=== PATIENT | female | born 1975 | race Caucasian/White ===

== ENCOUNTER 2017-12-17 05:40 | Day surgery (SDC) | payer MEDICAID ==
[2017-12-16 10:06] LABS: BASOPHILS 1.1 % (0-2); EOSINOPHILS 3.5 % (0-7); HEMATOCRIT 41.1 % (36.0-48.0); HEMOGLOBIN 13.4 g/dL (12-16); IMMATURE GRANULOCYTES 0.3 % (0-5); LYMPHOCYTES 26.5 % (15-50); MCH 30.5 pg (26.0-34.0); MCHC 32.6 g/dL (31.0-37.0); MCV 93.6 fL (80.0-100.0); MONOCYTES 9.1 % (2-11); NEUTROPHILS 59.5 % (40-80); PLATELET COUNT 237 10x3/uL (130-400); RBC 4.39 10x6/uL (4.00-5.40); RDW 13.2 % (11.5-14.5); WBC 6.5 10x3/uL (4.8-10.8)
[2017-12-17] VITALS (11 sets, daily range): BP systolic 99–137; BP diastolic 64–82; Ht 167.6 cm; Wt 103.6 kg
[~2017-12-17] VITALS: Ht 167.6 cm; Wt 103.6 kg
--- NOTE | ~2017-12-17 | DS ---
PATIENT:FELICIANO VILLARREAL :79 MEDICAL RECORD: [id number] DISCHARGE SUMMARY ADMISSION DATE: 12/17/17 DISCHARGE DATE: 12/18/17 DATE OF ADMISSION: 12/17/2017 DATE OF DISCHARGE: 12/18/2017 ADMISSION DIAGNOSES: 1. Pelvic pain. 2. Dysfunctional uterine bleeding. PROCEDURE PERFORMED: Total laparoscopic hysterectomy. ATTENDING: Dr. Atkinson HISTORY OF PRESENT ILLNESS: See the H&P in the chart. SUMMARY OF HOSPITALIZATION: The patient was admitted to the hospital and underwent procedure without difficulty. Due to logistical issues and concerns for care overnight, the patient was maintained in the hospital. At the time of discharge, she is tolerating regular diet, voiding without difficulty, and has adequate pain control. DISCHARGE MEDICATIONS: Will include Percocet and ibuprofen. DISCHARGE INSTRUCTIONS: The patient has been asked to follow up in 2 weeks and has been given standard precautions. TRANSINT:[id number] Voice Confirmation ID: [id number] DOCUMENT ID: [id number] BRIDGETTE ATKINSON MD at 0721 CC: [id number] DICTATION DATE: 12/18/17727 CANNON PINION ADJUSTER: 12/18/17 0735 DIS IN 12/18/[address] [facility] [address] [place] [address]
--- NOTE | ~2017-12-17 | OP ---
PATIENT NAME: FELICIANO VILLARREAL MEDICAL RECORD: [id number] :79 LOCATION:[facility].1274 ADMISSION DATE:12/17/17 SURGEON: JUSTIN ATKINSON MD DATE OF OPERATION: 12/17/2017 PREOPERATIVE DIAGNOSES: 1. Dysmenorrhea. 2. Dysfunctional uterine bleeding. POSTOPERATIVE DIAGNOSES: 1. Dysmenorrhea. 2. Dysfunctional uterine bleeding. 3. Fibroid uterus. PROCEDURE: Total laparoscopic hysterectomy with bilateral salpingectomy. SURGEON: Justin Atkinson MD BANK ANALYST: Matt Navarro. ANESTHESIOLOGIST: Enmanuel Portillo MD ANESTHESIA: General. FINDINGS: Uterus enlarged with irregular contour. Tubes are unremarkable. Both ovaries appear unremarkable. No evidence of endometriosis. SPECIMEN REMOVED: Uterus with cervix and tubes. SPECIMEN DISPOSITION: Pathology. ESTIMATED BLOOD LOSS: Less than or equal to 200 cc. FLUIDS: 1900 cc lactated Ringer's. URINE OUTPUT: 300 cc clear urine. COMPLICATIONS: None. DRAINS: Kyle to gravity. INDICATIONS: The patient is a 42-year-old female with heavy periods and pain. Clinical suspicion of adenomyosis. The patient has tried conservative therapy without results. The patient is consented for a total laparoscopic hysterectomy and indicated procedure. DESCRIPTION OF PROCEDURE: After informed consent was assured, the patient was taken to the operating room where anesthetic is obtained. She was prepped and draped in usual sterile fashion after being put in Yellofin stirrups. Another speculum was introduced and uterine manipulator placed. Attention was now directed to the abdomen where a primary trocar was inserted. The patient was placed in Trendelenburg position. Accessory trocars were placed in the right and left lower quadrants. Left tube is grasped and elevated from the right and using a coagulation cutter. The tube was from its attachment to the adnexa. The dissection was carried over the uterine ovarian ligaments and round OPERATIVE REPORT [id number] FELICIANO VILLARREAL ligaments. The anterior leaf of the broad ligament is dissected free to the level of the bladder flap anteriorly. The broad ligament was opened posteriorly. The vessels on the left side skeletonized, compressed, and coagulated. Attention was now directed to the right. The right tube is now elevated and removed from its attachments to the adnexa. The dissection was carried down over the uterine ovarian ligaments and round ligaments. The broad ligament was opened and the bladder flap now fully developed. The posterior leaf of the broad ligament is dissected free of the vessels on the right side. These were skeletonized, compressed, coagulated, and now . The attention was now directed to the left side where the vessels were . The dissection began on the uterus from the vaginal cuff from the 6 o'clock position to the 3 o'clock position and then from the fixed to the 12. The remaining portion of the cervix, the uterus attached to the vagina was removed from the 12 o'clock to 3 o'clock positions. Uterus is now pulled through the vagina and passed off the field. The cuff is closed with the legs positioned in the vaginal closure of the cuff began by placing a modified Gilman stitch. The stitch was passed from the posterior cuff through the left uterosacral ligament across to the right uterosacral ligament, and out to the vagina. This is held to be used later in the procedure. A stitch was now used to close the cuff from the anterior to posterior fashion. A running stitch of Vicryl was used. After closure of the vaginal cuff, the modified Gilman stitches tied. Pneumoperitoneum is now reestablished and the pelvis irrigated. The irrigant was removed. The cuff was inspected and found to be hemostatic. The pneumoperitoneum is released as the trocars were removed. The skin was reapproximated with a subcuticular stitch and Dermabond applied. Sponge, lap, and needle counts correct times 2. The patient is awake and went to recovery area in stable condition. TRANSINT:[id number] Voice Confirmation ID: [id number] DOCUMENT ID: [id number] JUSTIN ATKINSON MD at 0721 CC: [id number] DICTATION DATE: 12/17/17 0947 BANQUET STEWARD: 12/17/17 1049 DIS IN 12/18/17 [facility] [address] [place] [id number]
[~2017-12-17 05:40] MED LIST: EFFEXOR XR150 MG PO; TRAZODONE HCL150 MG PO; ULTRAM50 MG PO; XANAX1 MG PO
[2017-12-18 07:37] VITALS: BP 108/63
== END 2017-12-18 11:57 | disposition home or self-care (01) ==
LOC: D.OPS 05:40 → D.PAN 07:30 → D.OPS 07:30 → D.LD 12:06 → D.OPS 12:06 → D.LD 12-18 11:57
PROVIDERS: Obstetrics & Gynecology
DX: N93.8 Other specified abnormal uterine and vaginal bleeding (principal); K21.9 Gastro-esophageal reflux disease without esophagitis

== ENCOUNTER 2020-04-19 19:20 | Emergency (ER) | payer MEDICAID ==
[~2020-04-19] VITALS: Ht 167.6 cm; Wt 108.9 kg
[2020-04-19 19:42] VITALS: BP 133/85; Ht 167.6 cm; Wt 108.9 kg
[2020-04-19] MEDS ORDERED: METHOCARBAMOL500 MG PO (20:38)
[2020-04-19] MEDS ORDERED: VOLTAREN75 MG PO (20:38)
== END 2020-04-19 21:04 | disposition home or self-care (01) ==
LOC: D.ER 19:20
DX: S49.91XA Unspecified injury of right shoulder and upper arm, initial encounter (principal); M25.511 Pain in right shoulder; X50.0XXA Overexertion from strenuous movement or load, initial encounter; Y93.9 Activity, unspecified; Y92.9 Unspecified place or not applicable